=== PATIENT | female | born 1990 | race Caucasian/White ===

== ENCOUNTER 2021-07-30 20:33 | Emergency (ER) | payer OTHER ==
[~2021-07-30] VITALS: Ht 167.6 cm; Wt 68.2 kg
[2021-07-30 20:40] VITALS: BP 137/80
[2021-07-30] MEDS: ONDANSETRON ODT 4 MG TAB.RAPDIS PO ONE (21:48)
[2021-07-30] MEDS: KETOROLAC 60 MG/2 ML VIAL. IM ONE (21:48)
[2021-07-30] MEDS: diphenhydrAMINE 50 MG/ML VIAL IM ONE (21:48)
--- NOTE | 2021-07-30 21:50 | PHYS DOC ---
Past History Past Surgical History: No Surgical History (CRISTO WOOD APRN) Alcohol Use: None (CRISTO WOOD APRN) General Adult EDM: Chief Complaint: HEADACHE HPI: HPI: Patient is a 30-year-old female who presents with migraine. Patient has a history of migraine headaches and is prescribed medication. Patient states that her headache started yesterday. Patient reports taking her medication with no relief. Patient is nauseated and has light sensitivity. Denies visual changes. Patient states that her symptoms are consistent with her chronic migraines. (CRISTO WOOD APRN) Review of Systems: Review of Systems: ROS At least 10 ROS systems have been reviewed and are negative except as documented in the HPI. General: Negative except as outlined in HPI above. Skin: Negative except as outlined in HPI above. HEENT: Negative except as outlined in HPI above. Neck: Negative except as outlined in HPI above. Respiratory: Negative except as outlined in HPI above.. Cardiovascular: Negative except as outlined in HPI above. Abdomen: Negative except as outlined in HPI above. : Negative except as outlined in HPI above. Back/MSK: Negative except as outlined in HPI above. Neuro: Negative except as outlined in HPI above. Psych: Negative except as outlined in HPI above. (CRISTO WOOD APRN) Current Medications: Current Meds: Current Medications Medications (Trade) Dose Ordered Sig/Nolan Start Time Stop Time Status Last Admin Dose Admin Diphenhydramine HCl (Benadryl) 25 mg 1X ONCE 07/30/21 21:30 07/30/21 21:36 DC Ketorolac Tromethamine (Toradol Im) 60 mg 1X ONCE 07/30/21 21:30 07/30/21 21:36 DC Ondansetron HCl (Zofran Odt) 8 mg 1X ONCE 07/30/21 21:30 07/30/21 21:36 DC (CRISTO WOOD APRN) Allergies: Allergies: Allergies Coded Allergies Type Severity Reaction Last Updated Verified No Known Drug Allergies 07/30/21 No (CRISTO WOOD APRN) Physical Exam: PE: Constitutional: Well developed, well nourished, no acute distress, non-toxic appearance. [] HENT:bilateral external ears normal, oropharynx moist, no oral exudates, nose normal. [] Eyes: PERRLA, EOMI, conjunctiva normal, no discharge. [] Neck: Normal range of motion, no tenderness, supple, no stridor. [] Cardiovascular:Heart rate regular rhythm, no murmur [] Lungs & Thorax: Bilateral breath sounds clear to auscultation [] Abdomen: Bowel sounds normal, soft, no tenderness, no masses, no pulsatile masses. [] Skin: Warm, dry, no erythema, no rash. [] Back: No tenderness, no CVA tenderness. [] Extremities: No tenderness, no cyanosis, no clubbing, ROM intact, no edema. [] Neurologic: Alert and oriented X 3, normal motor function, normal sensory function, no focal deficits noted. [] Psychologic: Affect normal, judgement normal, mood normal. [] (CRISTO WOOD APRN) Current Patient Data: Vital Signs: Vital Signs Date Time Temp Pulse Resp B/P (MAP) Pulse Ox O2 Delivery O2 Flow Rate FiO2 07/30/21 20:40 98.2 110 18 137/80 (99) 98 Room Air (CRISTO WOOD APRN) EKG: EKG: [] (CRISTO WOOD APRN) Radiology/Procedures: Radiology/Procedures: [] (CRISTO WOOD APRN) Heart Score: C/O Chest Pain: No Risk Factors: Risk Factors: DM, Current or recent (<one month) smoker, HTN, HLP, family history of CAD, obesity. Risk Scores: Score 0 - 3: 2.5% MACE over next 6 weeks - Discharge Home Score 4 - 6: 20.3% MACE over next 6 weeks - Admit for Clinical Observation Score 7 - 10: 72.7% MACE over next 6 weeks - Early Invasive Strategies (CRISTO WOOD APRN) Course & Med Decision Making: Course & Med Decision Making Pertinent Labs and Imaging studies reviewed. (See chart for details) [] 30-year-old female presents with migraine headache. Patient has a history of headaches. Patient reports that symptoms started yesterday. Denies thunderclap. Denies being the worst headache of her life. Patient treated with IM Benadryl, Toradol, ODT Zofran. Advised patient to drink plenty of fluids. Patient to follow-up with PCP if symptoms do not improve. Discussed return precautions. Patient reports she understands discharge instructions. Patient is hemodynamically stable upon disposition. (CRISTO WOOD FRONT END LOADER DRIVER) Course & Med Decision Making Did not see or evaluate patient. Did not discuss patient with GERIATRIC CARE MANAGER. Generally agree with GERIATRIC CARE MANAGER's work-up and disposition per note (SHANTE GUZMAN MD) [place] Disclaimer: [place] Disclaimer: This electronic medical record was generated, in whole or in part, using a voice recognition dictation system. (CRISTO WOOD APRN) Departure Departure: Impression: Primary Impression: Migraine Qualified Codes: G43.909 - Migraine, unspecified, not intractable, without status migrainosus Disposition: HOME / SELF CARE / HOMELESS Condition: STABLE Referrals: NATASHA CR MD (PCP) Patient Instructions: General Headache Without Cause Additional Instructions: You are seen the emergency room for migraine headache. You were given medication to treat your symptoms. Make sure you are drinking plenty of fluids at home. Return to the emergency room if you have worsening symptoms or concerns. Otherwise follow-up with your PCP for further management. EMERGENCY DEPARTMENT GENERAL DISCHARGE INSTRUCTIONS Thank you for coming to [facility] (ED) today and trusting us with you care. We trust that you had a positivie experience in our Emergency Department. If you wish to speak to the department management, you may call the director at [phone]. YOUR FOLLOW UP INSTRUCTIONS ARE FOLLOWS: 1. Do you have a private Doctor? If you do not have a private doctor, please ask for a resource list of physicians or clinics that may be able to assist you with follow up care. 2. The Emergency Physician has interpreted your x-rays. The X-Ray specialist will also review them. If there is a change in the findings, you will be notified in 48 hours when at all possible. 3. A lab test or culture has been done, your results will be reviewed and you will be notified if you need a change in treatment. ADDITIONAL INSTRUCTIONS AND INFORMATION: 1. Your care today has been supervised by a physician who is specially trained in emergency care. Many problems require more than one evaluation for a complete diagnosis and treatment. We recommend that you schedule your follow up appointment as recommended to ensure complete treatment of you illness or injury. If you are unable to obtain follow up care and continue to have a problem, or if your condition worsens, we recommend that you return to the ED. 2. We are not able to safely determine your condition over the phone nor are we able to give sound medical advice over the phone. For these safety reasons, if you call for medical advice we will ask you to come to the ED for further evaluation. 3. If you have any questions regarding these discharge instructions please call the ED at [phone]. SAFETY INFORMATION: In the interest of safety, wellness, and injury prevention; we encourage you to wear your sealbelt, if you smoke; quite smoking, and we encourage family to use a protective helmet for bicycling and other sporting events that present an increased risk for head injury. IF YOUR SYMPTOMS WORSEN OR NEW SYMPTOMS DEVELOP, OR YOU HAVE CONCERNS ABOUT YOUR CONDITION; OR IF YOUR CONDITION WORSENS WHILE YOU ARE WAITING FOR YOUR FOLLOW UP APPOINTMENT; EITHER CONTACT YOUR PRIMARY CARE DOCTOR, THE PHYSICIAN WHOSE NAME AND NUMBER YOU WERE GIVEN, OR RETURN TO THE ED IMMEDIATELY. CRISTO WOOD APRN Jul 30, 2021 21:50 SHANTE GUZMAN MD Jul 30, 2021 22:24
== END 2021-07-30 22:10 | disposition home or self-care (01) ==
LOC: ER 20:33
DX: G43.909 Migraine, unspecified, not intractable, without status migrainosus (principal)
CPT/HCPCS: 96372; 99284; J1200; J1885; Q0162